=== PATIENT | male | born 1960 | race Caucasian/White ===

== ENCOUNTER → 2018-04-02 | Outpatient (CLI) | payer BC | END | disposition home or self-care (01) | LOC: RAH 15:03 | PROVIDERS: ATTEND Internal Medicine | DX: I87.2 Venous insufficiency (chronic) (peripheral) (principal); R60.0 Localized edema | CPT/HCPCS: 93970 ==

== ENCOUNTER → 2024-10-28 | Outpatient (CLI) | payer BC ==
--- NOTE | 2024-10-28 15:17 | HMCIMG ---
US SOFT TISSUE GROIN REASON: INGUINAL HERNIA W/O OBSTRUCTION COMPARISON: None TECHNIQUE: Ultrasound was performed of the right groin. FINDINGS: There is a sonolucent area in the right groin measuring 2.1 x 2.4 x 3.5 cm. This appears consistent with a small inguinal hernia containing only mesenteric fat. There is no evidence of bowel loop involvement. IMPRESSION: 1. Probable small right inguinal hernia.
== END | disposition home or self-care (01) ==
LOC: RAH 14:05
PROVIDERS: ATTEND Internal Medicine
DX: K40.90 Unilateral inguinal hernia, without obstruction or gangrene, not specified as recurrent (principal)
CPT/HCPCS: 76882

== ENCOUNTER → 2025-02-01 | Outpatient (CLI) | payer BC ==
--- NOTE | 2025-02-01 10:30 | HMCIMG ---
THORACIC SPINE 3VWS HISTORY: Pain COMPARISON: None FINDINGS: 2 images of thoracic spine were obtained. There is straightening of normal lordotic curvature which may be related to muscle spasm or positioning. No loss of vertebral height is seen. No fracture or dislocation is seen. Degenerative changes are seen. IMPRESSION: 1. No fracture is seen.
== END | disposition home or self-care (01) ==
LOC: RAH 09:15
PROVIDERS: ATTEND Nurse Practitioner Family
DX: M47.814 Spondylosis without myelopathy or radiculopathy, thoracic region (principal); M54.6 Pain in thoracic spine
CPT/HCPCS: 72072